=== PATIENT | male | born 1960 | race Asian ===

== ENCOUNTER 2017-06-10 20:44 | Emergency (ER) | payer MEDICAID ==
[2017-06-11 01:33] VITALS: BP 131/71
== END 2017-06-11 01:33 | disposition home or self-care (01) ==
LOC: ED 20:44
DX: K21.0 Gastro-esophageal reflux disease with esophagitis (principal); I10 Essential (primary) hypertension; Z79.899 Other long term (current) drug therapy
CPT/HCPCS: J1100